=== PATIENT | female | born 1975 | race Caucasian/White ===

== ENCOUNTER 2021-12-03 10:27 | Emergency (ER) | payer OTHER, SELFPAY ==
[2021-12-03 10:33] VITALS: BP 153/94; PULSE 96; RESP 15; TEMP 36.8; O2SAT 95; O2SAT 97; BMI 28.5
[2021-12-03 10:34] VITALS: BP 153/94; PULSE 90; O2SAT 98
--- NOTE | 2021-12-03 10:35 | DI.RAD.S_ITS ---
PROCEDURE: XR FOOT LT MIN 3V INDICATIONS: fall down 3 stairs with bilateral foot pain TECHNIQUE: 3 views of the foot were acquired. COMPARISON: None. FINDINGS: Bones: No acute fractures or dislocations. No suspicious bony lesions. Soft tissues: No suspicious soft tissue calcification. IMPRESSION: No acute osseous abnormality. If clinical suspicion and/or symptoms persist, additional imaging with repeat plain films, or advanced imaging (e.g. CT, MRI) may be helpful for further assessment. Dictated by: Pancho Gonsalez M.D. on 12/03/2021 at 11:44 Approved by: Pancho Gonsalez M.D. on 12/03/2021 at 11:54
--- NOTE | 2021-12-03 10:35 | DI.RAD.S_ITS ---
PROCEDURE: XR FOOT RT MIN 3V INDICATIONS: fall down 3 stairs with bilateral foot pain TECHNIQUE: 3 views of the foot were acquired. COMPARISON: None. FINDINGS: Bones: Minimal irregularity at the 1st digit distal phalangeal base at the interphalangeal joint. No dislocations. No suspicious bony lesions. Soft tissues: No tibiotalar joint effusion. Achilles tendon appears normal. IMPRESSION: Possible nondisplaced fracture at the 1st digit distal phalangeal base. This could be artifactual due to osteophyte. Recommend correlation for point tenderness. Dictated by: Raf Reese M.D. on 12/03/2021 at 11:16 Approved by: Raf Reese M.D. on 12/03/2021 at 11:18
[2021-12-03 11:00] VITALS: BP 135/73; PULSE 84; O2SAT 97
[2021-12-03 11:30] VITALS: BP 130/89; PULSE 80; O2SAT 98
--- NOTE | 2021-12-03 11:33 | ED.FALL ---
HPI - Fall General Chief Complaint: Fall Stated Complaint: fell down stairs/poss broken both feet Time Seen by Provider: 12/03/21 11:32 Source: patient Mode of arrival: Wheelchair Limitations: no limitations History of Present Illness HPI Narrative: This is a 45-year-old female who tripped going on the stairs and landed funny on her feet she does know exactly how she landed. She has pain in both feet but particularly in her 1st toe where there is a bruising and has pain with any weight-bearing on her right foot. On her left foot she has some discomfort over the 1st metatarsal but states not as significant. Patient denies any other injuries besides some bruising to her left forearm. She denies hitting her head or being knocked out. No neck or back pain. She denies any other symptoms. She is on spironolactone daily. She has had appendectomy she is allergic to sodium thiosulfate and had cardiac arrest as a child when having her appendectomy after administration. Occasional tobacco, occasional alcohol, no illicit. Related Data Allergies Allergy/AdvReac Type Severity Reaction Status Date / Time sodium p Allergy Uncoded 12/03/21 10:37 Review of Systems Review of Systems ROS Unobtainable: All systems reviewed & are unremarkable except as noted in HPI and below Patient History Social History Smoking Status: Unknown if ever smoked Smoking Status: Unknown if ever smoked alcohol intake frequency: holidays/special occasions only Substance Use Type: does not use Exam Narrative Exam Narrative: GENERAL: Alert and oriented x three, female mild distress. HEENT: Head normocephalic, atraumatic, EOMI, pupils reactive, face symmetric, moist mucous membranes NECK: Supple, full range of motion CARDIOVASCULAR: Regular rate and rhythm without murmurs, rubs or gallops. RESPIRATORY: Breath sounds equal bilaterally, no wheezes rales or rhonchi. ABDOMEN: Soft, nontender. Normoactive bowel sounds all 4 quadrants. No guarding or rebound, rigidity, no mass EXTREMITIES: Normal range of motion except for slightly decreased flexion extension of her 1st toe on her right foot. Patient has bruising of the right great toe on the medial side. Some slight swelling. No obvious deformity. She is nontender to palpation in all other toes. And has no other bony tenderness on palpation of her right foot, ankle or lower extremity. The left lower extremity she has some very mild tenderness over the 1st metatarsal but no ecchymosis or edema. 2+ dorsalis pedis bilateral lower extremities. Cap refill less than 2 seconds in all 10 toes.Neurovascularly intact NEUROLOGICAL: Cranial nerves II through XII grossly intact. Moving all extremities SKIN: Warm, dry, no petechiae, no rashes or lesions other than noted above. Initial Vital Signs Initial Vital Signs: Vital Signs Temperature 98.2 F 12/03/21 10:33 Pulse Rate 96 H 12/03/21 10:33 Respiratory Rate 15 12/03/21 10:33 Blood Pressure 153/94 H 12/03/21 10:33 Pulse Oximetry 97 12/03/21 10:33 Course Orders Ordered: ED Orders 12/03/21 10:35 XR foot LT min 3V Stat XR foot RT min 3V Stat Vital Signs Vital signs: Vital Signs - 8 hr 12/03/21 11:00 12/03/21 11:30 12/03/21 12:00 Pulse Rate 84 80 81 Blood Pressure 135/73 130/89 134/75 Pulse Oximetry 97 98 99 MDM - Fall Imaging Data Extremity x-ray #1: Radiologist's Impression: Launch?[place] [address] XRay Report Signed Patient: Madhavi Sanchez MR#: [id number] : 1975 Acct:[id number] Age/Sex: 45 / F Date of Service: 12/03/21 Loc: ED Accession Number: [id number] ?? Procedure: XR foot RT min 3V Ordering Provider: Sigrid Alarcon D.O. PROCEDURE:? XR FOOT RT MIN 3V ? INDICATIONS:? fall down 3 stairs with bilateral foot pain ? TECHNIQUE:? 3 views of the foot were acquired.? ? COMPARISON:? None. ? FINDINGS:? ? Bones:? Minimal irregularity at the 1st digit distal phalangeal base at the interphalangeal joint.? No dislocations.? No suspicious bony lesions.? ? Soft tissues:? No tibiotalar joint effusion.? Achilles tendon appears normal.? ? ? IMPRESSION:? Possible nondisplaced fracture at the 1st digit distal phalangeal base.? This could be artifactual due to osteophyte.? Recommend correlation for point tenderness. ? ? Dictated by: Raf Reese M.D. on 12/03/2021 at 11:16 ? ? Approved by: Raf Reese M.D. on 12/03/2021 at 11:18 Extremity x-ray #2: Radiologist's Impression: Launch?[address] [address] XRay Report Signed Patient: Madhavi Sanchez MR#: [id number] : 1975 Acct:[id number] Age/Sex: 45 / F Date of Service: 12/03/21 Loc: ED Accession Number: [id number] ?? Procedure: XR foot LT min 3V Ordering Provider: Sigrid Alarcon D.O. PROCEDURE:? XR FOOT LT MIN 3V ? INDICATIONS:? fall down 3 stairs with bilateral foot pain ? TECHNIQUE:? 3 views of the foot were acquired.? ? COMPARISON:? None. ? FINDINGS:? ? Bones:? No acute fractures or dislocations.? No suspicious bony lesions.? ? Soft tissues:? No suspicious soft tissue calcification. ? ? IMPRESSION:? No acute osseous abnormality.? If clinical suspicion and/or symptoms persist, additional imaging with repeat plain films, or advanced imaging (e.g. CT, MRI) may be helpful for further assessment. ? ? Dictated by: Pancho Gonsalez M.D. on 12/03/2021 at 11:44 ? ? Approved by: Pancho Gonsalez M.D. on 12/03/2021 at 11:54?? [facility] Narrative Medical decision making narrative: This is a 45-year-old female fell on the stairs. She has fracture for 1st toe on her right foot. No other acute changes appreciated on imaging. No other injuries other than some mild pain in the left foot. Plan for ortho shoe and crutches. Patient defers anything for pain states she will take Tylenol at home. But does request crutches. Discharge Plan Departure Patient Disposition: Home Clinical Impression: Fracture of toe Instructions: DI for Toe Fracture Activity Restrictions/Additional Instructions: Follow-up with your physician for recheck. It does appear you have a fracture of the 1st toe on your right foot, it it appears a nondisplaced. You may take tylenol up to 1000mg every 8 hours as needed for pain. Splint Care: Wear a hard shoe or ortho shoe and you may weightbear as tolerated. Elevated affected body part to decrease swelling. OK to use ice pack on the affected body part. Use for 15-20 minutes each time, for 5-6x per day. If you develop worsening pain, numbness, tingling, discoloration of the affected body part, adjust hard shoe, and either see your doctor for an urgent re-assessment, or return to the Emergency Department. Return to the Emergency Department for any new or worsening symptoms.
[2021-12-03 12:00] VITALS: BP 134/75; PULSE 81; O2SAT 99
== END 2021-12-03 12:29 | disposition home or self-care (01) ==
PROVIDERS: Emergency Provider Emergency Medicine
DX: S92.414A Nondisplaced fracture of proximal phalanx of right great toe, initial encounter for closed fracture (principal); M79.672 Pain in left foot; W10.9XXA Fall (on) (from) unspecified stairs and steps, initial encounter
CPT/HCPCS: 73630; 99283

== ENCOUNTER → 2022-10-04 14:23 | Outpatient (CLI) | payer OTHER, SELFPAY ==
[2022-10-04 14:45] LABS: Add Manual Diff / Slide Review NO; Basophils Absolute Auto 0 /uL (0-100); Basophils Percent Auto 0.5 % (0-2); Eosinophils Absolute Auto 100 /uL (0-450); Eosinophils Percent Auto 0.8 % (2-4); Hematocrit 38.3 % (36-46); Hemoglobin 12.4 g/dL (12.0-16.0); Lymphocytes Absolute Auto 1600 /uL (1100-4500); Mean Corpuscular HGB Conc 32.5 % (30-36); Mean Corpuscular Hemoglobin 29.7 PG (26-34); Mean Corpuscular Volume 91.4 fL (80-100); Monocytes Absolute Auto 400 /uL (0-900); Monocytes Percent Auto 5.6 % (3-14); Neutrophils Absolute Auto 5100 /uL (1500-7000); Neutrophils Percent Auto 71.1 % (50-75); Platelet Count 372 X10^3/uL (150-400); Red Blood Cell Count 4.19 X10^6/uL (4.0-5.2); Red Cell Distribution Width 14.2 % (11.6-14.8); White Blood Cell Count 7.1 X10^3/uL (4.5-11.0)
[2022-10-04 14:52] LABS: Hemoglobin A1C% w Est Avg Glu 6.7 % (4.0-6.0)
[2022-10-04 15:01] LABS: Alanine Aminotransferase 24 IU/L (<35); Albumin 4.3 g/dL (3.5-5.0); Albumin Globulin Ratio 1.1 (1.0-2.8); Alkaline Phosphatase 66 U/L (38-126); Aspartate Aminotransferase 21 IU/L (14-36); BUN Creatinine Ratio 14.9 (6-22); Bilirubin Total 0.3 mg/dL (0.2-1.3); Blood Urea Nitrogen 14 mg/dL (7-17); Calcium 9.2 mg/dL (8.4-10.2); Carbon Dioxide 27 mmol/L (22-32); Chloride 99 mmol/L (98-107); Cholesterol 209 mg/dL (140-199); Estimated Glomerular Filt Rate > 60 mL/min (>60); Globulin 3.9 g/dL (1.7-4.1); Glucose 165 mg/dL (70-100); HDL Cholesterol 52 mg/dL (40-60); HEMOLYSIS < 15 (0-50); LDL Cholesterol Calculated 140 mg/dL (<100); Sodium 136 mmol/L (137-145); Total Protein 8.2 g/dL (6.3-8.2); Triglycerides 86 mg/dL (35-150)
[2022-10-04 15:33] LABS: TSH w/ Reflex to FT4 1.02 uIU/mL (0.47-4.68)
[2022-10-04 15:50] LABS: Vitamin B12 > 1000 pg/mL (239-931)
== END ==
PROVIDERS: PCP Family Medicine; Referring Provider Family Medicine; Visit Provider Family Medicine
DX: E28.2 Polycystic ovarian syndrome (principal); R03.0 Elevated blood-pressure reading, without diagnosis of hypertension; R06.83 Snoring; R53.83 Other fatigue
CPT/HCPCS: 36415; 80053; 80061; 82607; 83036; 84443; 85025

== ENCOUNTER → 2022-10-08 09:41 | Outpatient (CLI) | payer OTHER, SELFPAY ==
--- NOTE | 2022-10-08 09:43 | DI.MG.S_ITS ---
BILATERAL DIGITAL SCREENING MAMMOGRAM 3D/2D WITH CAD: 10/08/2022 CLINICAL: Baseline exam. Routine screening. No prior exams were available for comparison. Both breasts are heterogeneously dense, which may obscure small masses (category c / 51-75% glandular tissue). Current study was also evaluated with a Computer Aided Detection (CAD) system. No significant masses, calcifications, or other findings are seen in either breast. IMPRESSION: NEGATIVE There is no mammographic evidence of malignancy. A 1 year screening mammogram is recommended. Based on the Tyrer Cuzick model (a risk assessment model) the patient's lifetime risk is 11.5% and her 10 year risk is 2.2%. According to the ACR, ACS, and NCCN guidelines, an annual breast MRI exam along with mammogram is recommended if the patient's lifetime risk is 20% or greater. This exam was interpreted at Station ID: [id number]. NOTE: For mammograms, a report in lay terms will be sent to the patient. Approximately 15% of breast malignancies will not be visualized mammographically. In the management of a palpable breast mass, a negative mammogram must not discourage biopsy of a clinically suspicious lesion. Electronically Signed By: Jose crespo/jasmin:10/10/2022 08:16:00 letter sent: Normal Exam ACR BI-RADS Category 1: Negative 3341F
== END ==
PROVIDERS: PCP Family Medicine; Referring Provider Family Medicine; Visit Provider Family Medicine
DX: Z12.31 Encounter for screening mammogram for malignant neoplasm of breast (principal)
CPT/HCPCS: 77063; 77067

== ENCOUNTER → 2023-03-08 09:14 | Outpatient (CLI) | payer OTHER, SELFPAY ==
[2023-03-09 04:27] LABS: x Labcorp Estim. Avg Glu (eAG) 131 mg/dL (.); x Labcorp Hemoglobin A1c 6.2 % (4.8-5.6)
== END ==
PROVIDERS: PCP Family Medicine; Referring Provider Family Medicine; Visit Provider Family Medicine
DX: E11.9 Type 2 diabetes mellitus without complications (principal)
CPT/HCPCS: 36415; 83036

== ENCOUNTER → 2023-11-15 09:15 | Outpatient (CLI) | payer OTHER, SELFPAY ==
--- NOTE | 2023-11-15 09:16 | DI.MG.S_ITS ---
BILATERAL DIGITAL SCREENING MAMMOGRAM 3D/2D WITH CAD: 11/15/2023 CLINICAL: Routine screening. Comparison is made to exam dated: 10/08/2022 mammogram - [facility]. Both breasts are heterogeneously dense, which may obscure small masses (category c / 51-75% glandular tissue). Current study was also evaluated with a Computer Aided Detection (CAD) system. No significant masses, calcifications, or other findings are seen in either breast. There has been no significant interval change. IMPRESSION: NEGATIVE There is no mammographic evidence of malignancy. A 1 year screening mammogram is recommended. Based on the Tyrer Cuzick model (a risk assessment model) the patient's lifetime risk is 11.5% and her 10 year risk is 2.3%. According to the ACR, ACS, and NCCN guidelines, an annual breast MRI exam along with mammogram is recommended if the patient's lifetime risk is 20% or greater. This exam was interpreted at Station ID: [id number]. NOTE: For mammograms, a report in lay terms will be sent to the patient. Approximately 15% of breast malignancies will not be visualized mammographically. In the management of a palpable breast mass, a negative mammogram must not discourage biopsy of a clinically suspicious lesion. Electronically Signed By: Raf barrera/jasmin:11/15/2023 16:00:34 letter sent: Normal Exam ACR BI-RADS Category 1: Negative 3341F
== END ==
LOC: MAMMO 09:16
PROVIDERS: PCP Family Medicine; Referring Provider Family Medicine; Visit Provider Family Medicine
DX: Z12.31 Encounter for screening mammogram for malignant neoplasm of breast (principal); R92.333 Mammographic heterogeneous density, bilateral breasts
CPT/HCPCS: 77063; 77067

== ENCOUNTER → 2024-01-12 14:29 | Outpatient (CLI) | payer OTHER, SELFPAY ==
[2024-01-12 15:25] LABS: Hemoglobin A1C% w Est Avg Glu 6.5 % (4.0-6.0)
[2024-01-12 15:51] LABS: Alanine Aminotransferase 24 IU/L (<35); Albumin 4.3 g/dL (3.5-5.0); Albumin Globulin Ratio 1.2 (1.0-2.8); Alkaline Phosphatase 72 U/L (38-126); Aspartate Aminotransferase 24 IU/L (14-36); BUN Creatinine Ratio 20.8 (6-22); Bilirubin Total 0.4 mg/dL (0.2-1.3); Blood Urea Nitrogen 20 mg/dL (7-17); Calcium 9.9 mg/dL (8.4-10.2); Carbon Dioxide 25 mmol/L (22-32); Chloride 104 mmol/L (98-107); Cholesterol 216 mg/dL (140-199); Estimated Glomerular Filt Rate > 60 mL/min (>60); Globulin 3.7 g/dL (1.7-4.1); Glucose 112 mg/dL (70-100); HDL Cholesterol 52 mg/dL (40-60); HEMOLYSIS < 15 (0-50); LDL Cholesterol Calculated 144 mg/dL (<100); Potassium 4.1 mmol/L (3.4-5.1); Sodium 137 mmol/L (137-145); Triglycerides 100 mg/dL (35-150)
[2024-01-15 07:49] LABS: HIV 1 & 2 Ab/Ag 4th Gen Combo NEGATIVE (NEGATIVE); Hep C Virus Ab w/Reflex Quant NEGATIVE s/c (NEGATIVE)
== END ==
LOC: LAB 14:30
PROVIDERS: PCP Family Medicine; Referring Provider Family Medicine; Visit Provider Family Medicine
DX: Z11.59 Encounter for screening for other viral diseases (principal); Z11.4 Encounter for screening for human immunodeficiency virus [HIV]; E11.9 Type 2 diabetes mellitus without complications; E78.5 Hyperlipidemia, unspecified
CPT/HCPCS: 80053; 80061; 83036; 86803; 87389

== ENCOUNTER → 2025-02-05 11:53 | Outpatient (CLI) | payer OTHER, SELFPAY ==
--- NOTE | 2025-02-05 11:54 | DI.RAD.S_ITS ---
PROCEDURE: XR KNEE 3 V WB RIGHT INDICATIONS: Right Knee Pain TECHNIQUE: 3 views of the knee were acquired. COMPARISON: None. FINDINGS: There is evidence of prior ORIF pin tracts in the right proximal tibia metaphysis and diaphysis and nonspecific widened appearance of the right anterior tibial tuberosity likely related to prior procedure or remote healed fracture. Similar tracks are noted in the right patella most notably on the lateral image. Mild degenerative changes of the right knee with mild joint space narrowing and small osteophytes, Kellgren Phoenix grade 2 predominantly in the medial greater than patellofemoral greater than lateral compartments. No radiographic evidence of acute fracture, dislocation, knee joint effusion, or high attenuation soft tissue foreign body. IMPRESSION: Postoperative changes as discussed above. Mild degenerative changes. If symptoms persist or worsen, or there is high clinical suspicion of right knee abnormality, MRI could be performed. Dictated by: Pee Cisneros M.D. on 02/05/2025 at 12:56 Approved by: Pee Cisneros M.D. on 02/05/2025 at 13:02
== END ==
LOC: RAD 11:53
PROVIDERS: PCP Family Medicine; Referring Provider Orthopaedic Surgery Adult Reconstructive Orthopaedic Surgery; Visit Provider Orthopaedic Surgery Adult Reconstructive Orthopaedic Surgery
DX: M25.561 Pain in right knee (principal)
CPT/HCPCS: 73560

== ENCOUNTER → 2025-06-27 10:05 | Outpatient (CLI) | payer OTHER, SELFPAY ==
[2025-06-27 12:28] LABS: Alanine Aminotransferase 29 IU/L (<35); Albumin 4.5 g/dL (3.5-5.0); Albumin Globulin Ratio 1.5 (1.0-2.8); Alkaline Phosphatase 61 U/L (38-126); Blood Urea Nitrogen 18 mg/dL (7-17); Calcium 10.4 mg/dL (8.4-10.2); Carbon Dioxide 25 mmol/L (22-32); Chloride 103 mmol/L (98-107); Cholesterol 180 mg/dL (140-199); Estimated Glomerular Filt Rate > 60 mL/min (>60); Globulin 3.0 g/dL (1.7-4.1); Glucose 88 mg/dL (70-99); HDL Cholesterol 61 mg/dL (40-60); HEMOLYSIS < 15 (0-50); Potassium 4.8 mmol/L (3.4-5.1); Sodium 137 mmol/L (137-145); Total Protein 7.5 g/dL (6.3-8.2); Triglycerides 97 mg/dL (35-150)
[2025-06-27 12:32] LABS: Hemoglobin A1C% w Est Avg Glu 5.8 % (4.0-6.0)
== END ==
PROVIDERS: PCP Family Medicine; Referring Provider Family Medicine; Visit Provider Family Medicine
DX: E11.9 Type 2 diabetes mellitus without complications (principal); E78.5 Hyperlipidemia, unspecified; E66.811 Obesity, class 1; G89.29 Other chronic pain; M25.561 Pain in right knee
CPT/HCPCS: 36415; 80053; 80061; 83036